=== PATIENT | female | born 1960 ===

== ENCOUNTER 2017-08-05 05:13 | Day surgery (SDC) | payer MEDICAID, OTHER ==
--- NOTE | 2017-08-03 12:35 | Pre-Procedure Note/Attestation ---
Pre-Procedure Note/Attestation Complete Prior to Procedure Planned Procedure: right Procedure Narrative: phaco with IOL, OD Indications for Procedure Pre-Operative Diagnosis: cataract Attestation I attest that I discussed the nature of the procedure; its benefits; risks and complications; and alternatives (and the risks and benefits of such alternatives ), prior to the procedure, with the patient (or the patient's legal district sales representative). I attest that, if there was a reasonable possibility of needing a blood transfusion, the patient (or the patient's legal district sales representative) was given the [facility] standardized written summary, pursuant to the Alejandro Liv Blood Safety Act ([place] Health and Safety Code # 1645, as amended). I attest that I re-evaluated the patient just prior to the surgery and that there has been no change in the patient's H&P, except as documented below: LIZ JUDGE Aug 03, 2017 12:35
--- NOTE | 2017-08-03 12:37 | Opthalmology H&P ---
Ophthalmology H&P H&P Chief Complaint: decreased vision in right eye HPI Vision Affects Ability to: read, focus/use eyes together, manage personal affairs HPI Narrative blurry vision Exam Visual Acuity: OD: 20/50 OS: 20/30 Tension: OD: 13 OS : 16 Eye Exam: normal OU: external exam, palpebral fissure-width, marginal reflex distance, levator function, corneas, anterior chambers, fundus exam, findings: lens - OD: PSC Assessment/Plan Diagnosis: (1) Cataract Treatment Plan: cataract extraction w/ lens implant Goals of Treatment: improvement of vision, enhance quality of life Attestation Attestation The risks and benefits of the surgery as well as alternative procedures were explained to the patient in detail. LIZ JUDGE Aug 03, 2017 12:37
[2017-08-05] VITALS (9 sets, daily range): BP systolic 104–130; BP diastolic 65–84
[~2017-08-05] VITALS: Ht 157.5 cm; Wt 74.8 kg
[2017-08-05] MEDS ORDERED: CYMBALTA60 MG ORAL (05:51)
[2017-08-05] MEDS ORDERED: LASIX20 M1 ORAL (05:51)
[2017-08-05] MEDS ORDERED: DILAUDID4 MG ORAL (05:51)
[2017-08-05] MEDS: Cyclopentolate 1% Opth Sol 2ml RIGHT EYE SCH ×3 (05:55→06:10)
[2017-08-05] MEDS: Tobramycin Op Soln 0.3% 5ml RIGHT EYE SCH ×3 (05:56→06:10)
[2017-08-05] MEDS: Tropicamide 1% Opth 15ml Soln RIGHT EYE SCH ×3 (05:56→06:10)
[2017-08-05] MEDS: Phenylephrine 10% Opth Soln 5ml RIGHT EYE SCH ×3 (05:58→06:10)
[2017-08-05] MEDS ORDERED: Maxitrol Opth Oint 3.5gm ONE (07:00)
[2017-08-05] MEDS ORDERED: fentaNYL 100 mcg/2 mL IV ONE (07:00)
[2017-08-05] MEDS ORDERED: Tetracaine 0.5% Opth 4ml Soln ONE (07:00)
[2017-08-05] MEDS ORDERED: BSS 500ml btl ONE (07:00)
[2017-08-05] MEDS ORDERED: EPINEPHrine 1mg/1ml Amp ONE (07:00)
[2017-08-05] MEDS ORDERED: Midazolam 2mg/2ml Inj ONE (07:00)
[2017-08-05] MEDS ORDERED: Dexamethasone 4mg/ml vial ONE (07:00)
[2017-08-05] MEDS ORDERED: Ketorolac Tromethamine Opth 5ml Soln RIGHT EYE SCH (07:00)
[2017-08-05] MEDS ORDERED: LR 1000ml ONE (07:00)
[2017-08-05] MEDS ORDERED: Propofol 200mg/20ml IV ONE (07:00)
[2017-08-05] MEDS ORDERED: Pred Forte 1% Opth Susp 1ml ONE (07:00)
[2017-08-05] MEDS ORDERED: Sterile Water Irrig 1000ml IRRIG ONE (07:00)
[2017-08-05] MEDS ORDERED: Akten 3.5% 1ml Btl RIGHT EYE ONE (07:00)
--- NOTE | 2017-08-05 07:10 | Anethesia Preoperative Eval ---
Anesthesia Pre-op PMH/ROS General Date of Evaluation: Aug 05, 2017 Time of Evaluation: 07:07 Anesthesiologist: Ky ASA Score: ASA 3 Mallampati Score Class I : Soft palate, uvula, fauces, pillars visible Class II: Soft palate, uvula, fauces visible Class III: Soft palate, base of uvula visible Class IV: Only hard plate visible Mallampati Classification: Class II Surgeon: Lori Diagnosis: R eye cataract Surgical Procedure: R eye cataract extraction Anesthesia History: none Social History: current smoker Family History: no anesthesia problems Allergies: Coded Allergies: No Known Allergies (Unverified , 08/03/17) Medications: see eMAR Past Medical History Cardiovascular: Reports: HTN, Denies: CAD, [place], valve dz, arrhythmia, other Pulmonary: Denies: asthma, COPD, KELSEY, other Gastrointestinal/Genitourinary: Reports: GERD, other - s/p gastric bypass, Denies: CRI, ESRD Neurologic/Psychiatric: Reports: depression/anxiety, Denies: dementia, CVA, TIA, other Endocrine: Reports: steroids, Denies: DM, hypothyroidism, other HEENT: Reports: cataract (L), cataract (R) Hematology/Immune: Reports: anemia Musculoskeletal/Integumentary: Reports: DJD, edema Other: obesity - s/p gastric bypass PMH Narrative: as above PSxH Narrative: Multiple see chart Anesthesia Pre-op Phys. Exam Physician Exam Last Vital Signs Date Time Temp Pulse Resp B/P (MAP) Pulse Ox O2 Delivery O2 Flow Rate FiO2 08/05/17 05:53 98.4 59 20 122/75 95 Room Air Constitutional: NAD Neurologic: CN 2-12 intact Cardiovascular: RRR, no M/R/G Respiratory: CTA Gastrointestinal: S/NT/ND Airway Exam Mallampati Score: Class II MO: limited Neck: stiff ROM: limited Teeth: missing Dentures: upper, lower Anesthesia Pre-op A/P Labs see chart Studies Pre-op Studies: EKG - NSR Risk Assessment & Plan Assessment: ASA 3 Plan: MAC Status Change Before Surgery: No Pre-Antibiotics Drug: none TRENTON TAVAREZ M.D. Aug 05, 2017 07:10
[2017-08-05] MEDS ORDERED: LR 1000ml 1,000 ML IVLG SCH (07:33)
[2017-08-05] MEDS ORDERED: fentaNYL 100 mcg/2 mL IV PRN (07:45)
[2017-08-05] MEDS ORDERED: Midazolam 2mg/2ml Inj IVP PRN (07:45)
[2017-08-05] MEDS ORDERED: DiphenhydrAMINE 50mg/ml Inj IVP PRN (07:45)
--- NOTE | 2017-08-05 08:25 | Immediate Post-Op Evaluation ---
Immediate Post-Op Evalulation Immediate Post-Op Evalulation Procedure: R eye cataract extraction with IOL Date of Evaluation: Aug 05, 2017 Time of Evaluation: 07:57 IV Fluids: 300 Blood Products: none Estimated Blood Loss: none Urinary Output: none Blood Pressure Systolic: 126 Blood Pressure Diastolic: 74 Pulse Rate: 62 Respiratory Rate: 20 O2 Sat by Pulse Oximetry: 99 Temperature (Fahrenheit): 97.5 Pain Score (1-10): 1 Nausea: No Vomiting: No Complications none Patient Status: awake, patent, none Hydration Status: adequate TRENTON TAVAREZ M.D. Aug 05, 2017 08:25
--- NOTE | 2017-08-05 09:15 | 48 Hour Post Anesthesia Eval ---
Post Anesthesia Evaluation Procedure: R eye cataract extraction with IOL Date of Evaluation: Aug 05, 2017 Time of Evaluation: 09:14 Blood Pressure Systolic: 128 0: 74 Pulse Rate: 65 Respiratory Rate: 20 Temperature (Fahrenheit): 97.6 O2 Sat by Pulse Oximetry: 98 Airway: patent Nausea: No Vomiting: No Pain Intensity: 1 Hydration Status: adequate Cardiopulmonary Status: stable Mental Status/LOC: patient returned to baseline Follow-up Care/Observations: n/a Post-Anesthesia Complications: none Follow-up care needed: ready to discharge TRENTON TAVAREZ M.D. Aug 05, 2017 09:15
[2017-08-05] MEDS ORDERED: Povidone-Iodine 5% opth solution ONE (09:59)
[2017-08-05] MEDS ORDERED: Sodium Hyaluronate 14 mg/ml 0.85ml ONE (09:59)
[2017-08-05] MEDS ORDERED: Pilocarpine 2% Opth 15ml Soln ONE (09:59)
[2017-08-05] MEDS ORDERED: BSS 15ml BTL ONE (09:59)
--- NOTE | 2017-08-06 09:46 | Brief Operative Note ---
Immediate Post Operative Note Operative Note Chief Complaint: blurry vision Pre-op Diagnosis: cataract, OD Procedure: phaco with IOL, OD Post-op Diagnosis: Pseudophakia Post-op Diagnosis: same as pre-op Findings: consistent w/pre-op dx studies Surgeon: Lori Anesthesiologist: Ky Anesthesia: MAC Specimen: none Complications: none Condition: stable Fluids: LR Estimated Blood Loss: none Drains: none Implant(s) used?: Yes LIZ JUDGE Aug 06, 2017 09:46
--- NOTE | 2017-08-06 09:47 | Operative Note - PDOC ---
Operative Note Operative Note Date of Operation/Procedure: Jul 29, 2017 Chief Complaint: blurry vision Pre-op Diagnosis: cataract, OD Procedure: phaco with IOL, OD Post-op Diagnosis: Pseudophakia Post-op Diagnosis: same as pre-op Operative Findings: consistent w/pre-op dx studies Surgeon: Lori Anesthesiologist: Ky Anesthesia: MAC Specimen: none Complications: none Condition: stable Fluids: LR Estimated Blood Loss: none Drains: none Implant(s) used?: Yes Indications for Procedure cataract Description of Procedure This patient has been complaining visually significant cataract in the affected eye with the best corrected visual acuity under moderate glare conditions worse. The patient complains of difficulties with glare in performing activities of daily living and wants to manage personal affairs with comfort and accuracy and see well enough to move with safety at home and outdoors. The risks, benefits and alternatives of the procedure were discussed with the patient in the office prior to scheduling surgery. All questions from the patient were answered after the surgical procedure was explained in detail. The risks of the procedure as explained to the patient include, but are not limited to, pain, infection, bleeding, loss of vision, retinal detachment, need for further surgery, loss of lens nucleus, double vision, etc. Alternative procedures were discussed which include, to do nothing or seek a second opinion. Informed consent for this procedure was obtained from the patient. The patient was referred to a primary care physician for a cardiopulmonary clearance prior to surgery, after proper evaluation was done patient was properly scheduled for outpatient surgery. The patient was brought to the operating room where the anesthesiologist established I.V. lines and cardiac monitoring leads. Mild intravenous sedation was administered. The patient was then prepared with a 5% solution of povidone -iodine to the conjunctival fornix and lashes, and a 5% solution of povidone- iodine to the lids and periorbital skin. The patient was then draped in the usual sterile fashion. A lid speculum was then placed in the operative eye. A keratome blade was then used to create a biplanar incision into the anterior chamber. Viscoelastics was then instilled into the anterior chamber. A capsulorrhexis was then fashioned with an utrata forceps. BSS and a cannula were then used to hydrodissect and hydro delineate the lens. Paracentesis incision was made at 3 o'clock with sharp blade. The phacoemulsification unit, after being properly adjusted and tested, was then used to emulsify the nucleus. Residual cortical material was aspirated with the irrigation and aspiration unit. Healon was then instilled into the anterior chamber. The corneal wound was then enlarged to the size of the optic with the bernice keratome blade. The intraocular lens was then inspected for right power and size and thought to be satisfactory. Then the lens was gently placed in the capsular bag. Positioning within the capsular bag was confirmed by direct visualization. Optic centration was accomplished with a Sinskey hook. Viscoelastics was removed from the anterior chamber using the irrigation and aspiration unit. The corneal wound was then tested for leaks and none were found. The lid speculum were then removed. Sponge and needle counts were correct. An eye patch and shield were placed over the operative eye. The patient was taken to the recovery room in stable condition. There were no complications. The patient tolerated the procedure well. The patient was then transferred to the ambulatory surgery unit in stable and satisfactory condition , was given detailed written instructions and asked to follow up in the office the next day. Sophia SCHMITT JAMES Aug 06, 2017 09:47
== END 2017-08-05 08:55 | disposition home or self-care (01) ==
LOC: SUR 05:13 → EDBD 05:13 → SUR 08:55
DX: H26.9 Unspecified cataract (principal); I10 Essential (primary) hypertension; M06.9 Rheumatoid arthritis, unspecified; F41.9 Anxiety disorder, unspecified; Z98.84 Bariatric surgery status; Z90.710 Acquired absence of both cervix and uterus; Z85.41 Personal history of malignant neoplasm of cervix uteri; Z59.0 Homelessness; Z72.0 Tobacco use; E66.9 Obesity, unspecified; Z68.30 Body mass index [BMI] 30.0-30.9, adult; K21.9 Gastro-esophageal reflux disease without esophagitis; F32.9 Major depressive disorder, single episode, unspecified; M19.90 Unspecified osteoarthritis, unspecified site
CPT/HCPCS: 66984; J0171; J1100; J2250; J2704; J3010; J3370; J7120; V2632; Z7512; 94003; 94150